=== PATIENT | female | born 1980 | race Hispanic/Latino ===

== ENCOUNTER 2018-03-21 08:22 | Outpatient (CLI) | payer OTHER ==
--- NOTE | 2018-03-21 09:48 | RAD ---
LUMBAR SPINE TWO VIEWS: History: 37-year-old female with history of lumbago with sciatica, left side. FINDINGS: AP and lateral weightbearing views of the lumbar spine are performed. There are some disc osteophytosis changes with some minimal generalized ligament and facet hypertroph ic changes. No acute fracture, dislocation, or malalignment. IMPRESSION: Lumbar spondylosis. POS: ALEX
== END 2018-03-21 08:23 | disposition home or self-care (01) ==
LOC: BICRAD 08:22
PROVIDERS: ATTEND Family Medicine
DX: M54.42 Lumbago with sciatica, left side (principal); M47.26 Other spondylosis with radiculopathy, lumbar region
CPT/HCPCS: 72100

== ENCOUNTER 2018-09-26 15:08 | Outpatient (CLI) | payer OTHER ==
--- NOTE | 2018-09-26 15:47 | MMO ---
Bilateral MAMMO Bilat Screen [facility]. CLINICAL HISTORY: Patient is 38 years old and is seen for screening. The patient has no family history of breast cancer. The patient has no personal history of cancer. VIEWS: The views performed were: bilateral craniocaudal with tomosynthesis and bilateral mediolateral oblique with tomosynthesis. MAMMOGRAM FINDINGS: There are scattered fibroglandular densities. There are benign appearing calcifications seen in the right breast. There are no suspicious masses, suspicious calcifications, or new areas of architectural distortion. IMPRESSION: THERE IS NO MAMMOGRAPHIC EVIDENCE OF MALIGNANCY. A ROUTINE FOLLOW-UP MAMMOGRAM IN 1 YEAR IS RECOMMENDED. THE RESULTS OF THIS EXAM WERE SENT TO THE PATIENT. ACR BI-RADS Category 2 - Benign finding MAMMOGRAPHY NOTE: 1. A negative mammogram report should not delay a biopsy if a dominant of clinically suspicious mass is present. 2. Approximately 10% to 15% of breast cancers are not detected by mammography. 3. Adenosis and dense breasts may obscure an underlying neoplasm.
== END 2018-09-26 15:09 | disposition home or self-care (01) ==
LOC: BICMAMMO 15:08
PROVIDERS: ATTEND Student in an Organized Health Care Education/Training Program
DX: Z12.31 Encounter for screening mammogram for malignant neoplasm of breast (principal)
CPT/HCPCS: 77063; 77067

== ENCOUNTER 2019-03-05 06:40 | Outpatient (CLI) | payer OTHER ==
[2019-03-05 15:51] LABS: BHCG - Serum Negative (NEGATIVE); Pregs Control Background? CLEAR/WHITE (CLR/WHITE); Pregs Control Bar Appear? YES (CONTROL BAR)
--- NOTE | 2019-03-10 17:06 | EKG ---
Test Reason : Blood Pressure : / mmHG Vent. Rate : 085 BPM Atrial Rate : 085 BPM P-R Int : 148 ms QRS Dur : 084 ms QT Int : 362 ms P-R-T Axes : -21 058 020 degrees QTc Int : 430 ms Normal sinus rhythm Normal ECG No previous ECGs available Confirmed by CAITLIN JUAREZ (2) on 03/10/2019 5:06:00 PM Referred By: MATT Confirmed By:CAITLIN JUAREZ
== END 2019-03-05 06:41 | disposition home or self-care (01) ==
LOC: LABBT 06:40
PROVIDERS: ATTEND Student in an Organized Health Care Education/Training Program
DX: Z01.818 Encounter for other preprocedural examination (principal); N92.0 Excessive and frequent menstruation with regular cycle; R10.2 Pelvic and perineal pain; N83.202 Unspecified ovarian cyst, left side; N87.9 Dysplasia of cervix uteri, unspecified
CPT/HCPCS: 84703; 93005; 93010

== ENCOUNTER 2019-03-11 07:24 | Day surgery (SDC) | payer OTHER ==
[2019-03-05 09:45] VITALS: BMI 47.2
[2019-03-05 15:41] LABS: Hemoglobin 11.9 g/dL (12.0-16.0); Mean Corpuscular HGB CONC 33.3 g/dL (32.0-36.0); Mean Corpuscular Hemoglobin 28.9 pg (27.0-31.0); Mean Corpuscular Volume 86.8 fL (78.0-98.0); Mean Platelet Volume 8.3 fL (7.4-10.4); Platelet Count 319 thou/uL (130-400); RBC Distribution Width 13.5 % (11.5-14.5); Red Blood Cell (RBC) Count 4.12 mill/uL (4.20-5.40); White Blood Cell (WBC) Count 14.4 thou/uL (4.8-10.8)
[2019-03-05 16:03] LABS: ALT (SGPT) 14 U/L (8-55); AST (SGOT) 11 U/L (5-34); Albumin 3.7 g/dL (3.5-5.0); Alkaline Phosphatase 103 U/L (40-150); Anion Gap 14 mmol/L (10-20); BUN (Urea Nitrogen) 12 mg/dL (7.0-18.7); Bilirubin, Direct 0.1 mg/dL (0.1-0.3); Bilirubin, Total Less than 0.2 mg/dL (0.2-1.2); Calc. Creatinine Clearance 0 mL/min (70-130); Calcium 9.3 mg/dL (7.8-10.44); Carbon Dioxide 25 mmol/L (22-29); Chloride 104 mmol/L (98-107); Estimated GFR-MDRD Greater than 90; Glucose 140 mg/dL (70-105); Potassium 3.6 mmol/L (3.5-5.1); Protein, Total 7.2 g/dL (6.0-8.3); Sodium 139 mmol/L (136-145)
[2019-03-11] MEDS ORDERED: Famotidine/PF 20 mg/2ml Vial ONE (07:52)
[2019-03-11] MEDS ORDERED: Gabapentin 300 MG CAP ONE (07:52)
[2019-03-11] MEDS ORDERED: Midazolam HCl 2 mg/2 ml Vial ONE (09:59)
[2019-03-11] MEDS ORDERED: Bupivacaine HCl 0.5%/Epinephrine 1:200,000/PF 30 ml Vial ONE (10:12)
[2019-03-11] MEDS ORDERED: Fentanyl 250 MCG/5 ML VIAL ONE (10:19)
[2019-03-11] MEDS ORDERED: Albuterol Sulfate HFA (OR ONLY) ONE (10:47)
[2019-03-11] MEDS ORDERED: Fentanyl 100 MCG/2 ML VIAL ONE ×2 (13:18→13:43)
[2019-03-11] MEDS ORDERED: Ondansetron PF 4 MG/2 ML Vial ONE (13:51)
[2019-03-11] MEDS ORDERED: Lidocaine 1% PF 5 ML VIAL ONE (13:51)
[2019-03-11] MEDS ORDERED: Rocuronium Bromide 10 MG/ML (10ML VIAL) ONE (13:51)
[2019-03-11] MEDS ORDERED: Metoclopramide HCl 10 MG/2 ML VIAL ONE (13:51)
[2019-03-11] MEDS ORDERED: PROPOFOL 200 MG/20 ML VIAL ONE (13:51)
[2019-03-11] MEDS ORDERED: Glycopyrrolate 0.2 MG/ML 5 ML SYRINGE ONE (13:51)
[2019-03-11] MEDS ORDERED: HYDROcodone/Acetaminophen 5/325 mg Tablet ONE ×2 (15:13→18:04)
--- NOTE | 2019-03-12 10:39 | OP ---
DATE OF PROCEDURE: 03/11/2019 PREOPERATIVE DIAGNOSES: 1. Pelvic pain. 2. Menorrhagia. 3. Ovarian cyst. 4. Cervical dysplasia. POSTOPERATIVE DIAGNOSES: 1. Pelvic pain. 2. Menorrhagia. 3. Ovarian cyst. 4. Cervical dysplasia. 5. Endometriosis. 6. Pelvic adhesions. PROCEDURES PERFORMED: Robotic-assisted total laparoscopic hysterectomy, bilateral salpingo-oophorectomy, and lysis of adhesions. ANESTHESIA: General endotracheal. FLYING SQUAD WORKER SURGEON: Fern Diaz. ESTIMATED BLOOD LOSS: 100 mL. IVF: 1800 mL crystalloid. URINE OUTPUT: 350 mL of clear urine. COMPLICATIONS: None. DRAINS: Chaves catheter. PATHOLOGY: Uterus, cervix, and bilateral fallopian tubes and ovaries. FINDINGS: On exam under anesthesia, a mobile 9-week sized uterus present, sounded to 9 cm. Cervix was normal-appearing. On intraabdominal survey, omental adhesions to the umbilicus as well as adhesions of the ovary to the sigmoid and the pelvic sidewall on the left side that were densely adherent. Filmy adhesions of the uterus to the bladder, the posterior cul-de-sac, and bilateral pelvic sidewalls. Fallopian tube on the left side appeared to be a hydrosalpinx. The right ovary was noted to have endometriotic implants on it. The right fallopian tube appeared swollen as well. The ureters were dissected out retroperitoneally for visualization to ensure no inadvertent injury. DESCRIPTION OF PROCEDURE: The patient was taken to the operating room, where general anesthesia was obtained without difficulty. The patient was prepped and draped in a sterile fashion in the dorsal lithotomy position. A Chaves catheter was placed in the bladder. Speculum was placed in the vagina. The anterior lip of the cervix was grasped with a single-tooth tenaculum. The uterus then sounded to 9 cm, and the BENTLEY manipulator was assembled with a 3.5 cm colpotomizer ring and an 8 cm tip. The cervix was dilated with Levy dilators and the BENTLEY tip was inserted into the uterus. Instruments were removed out of the vagina, and vaginal occluder balloon was inflated. Legs were placed in the lithotomy. Attention was turned to the abdomen. 0.5% Marcaine with epi was infiltrated into the superior aspect of the umbilicus, and a 12-mm vertical skin incision was made with a knife. The Veress needle was passed into the abdomen and after several attempts, an opening pressure of 3 mmHg was achieved. Pneumoperitoneum was obtained. The Veress needle was removed, and a 12-mm trocar was advanced into the abdomen and confirmed placement with a robotic camera. The omental adhesions to the umbilicus were noted and these were inferior to where the trocar was placed. There was no bowel contained in these. Steep Trendelenburg was obtained. Right and left lower quadrant 8-mm robotic trocars were placed after infiltrating with anesthetic and making a horizontal skin incision under direct visualization. A right upper quadrant 11-mm cancer genetics assistant port was also placed under direct visualization after infiltrating with anesthetic and making horizontal skin incision. The robot was then docked. The right robotic arm contained the monopolar scissors and left robotic arm contained a fenestrated bipolar. The surgeon console then took control. The omental adhesions of the umbilicus were able to be avoided by bringing the camera around the side of it. At that time, it was noted that the pelvis had adhesions in it and the above findings were noted. Approximately, 30 minutes of lysis of adhesions was performed to normalize the anatomy prior to beginning the hysterectomy. This was mainly on the left lower quadrant pelvis. The filmy adhesions of the sigmoid to the ovary were initially taken down with cold scissors. There were also sigmoid adhesions to the left pelvic sidewall that impaired visualization and traction on the ovary and these were taken down with cold scissors as well. The ovary was then carefully dissected off the pelvic brim and pelvic sidewall, mainly using traction-countertraction technique with both the instruments and achieving hemostasis with cautery. Once the ovary was freed up, the infundibulopelvic ligament was identified. A window was made around the IP ligament and this was clamped and cauterized, tagging the ovary to ensure no ureteral injury as the ureter had not yet been identified. The IP was incised with the scissors, and the peritoneum was incised down to the round ligament that was cauterized and incised in the midportion and that opened up the broad ligament and the anterior leaf was incised. There were filmy adhesions to the round ligament and pelvic sidewall from the uterus that were taken down with the scissors and cautery and there were also filmy adhesions of the bladder to the lower uterine segment. The posterior leaf of the broad ligament was dropped down, and the retroperitoneum was dissected off the uterine pedicle, mainly with blunt dissection, pushing and spreading with both instruments. The uterine pedicle was skeletonized adequately. The ureter was not identified at that time. The bladder flap was then created ensuring a clear window by tenting up with the fenestrated and incising with the scissors. Attention was then turned to the right side, where it was determined there were endometriotic implants and the adhesions were from endometriosis and decided that due to patient's main complain of pelvic pain, she would benefit from BSO secondary to endometriosis. Therefore, the ureter on the right side was identified at the pelvic brim. The ovary was elevated. The IP was clamped and cauterized underneath the ovary and incised with the scissors. The peritoneum was then incised down to the round ligament. The round ligament was cauterized and incised also. The posterior leaf of the broad ligament was dropped down. The ureter was identified in the retroperitoneum easily on the right side, and the retroperitoneum was dissected off the uterine arteries and skeletonized. The anterior leaf of the broad ligament was incised also down to the bladder flap. The bladder flap was further created by scoring on the pubocervical fascia and bluntly dissecting down distally below the level of the colpotomizer ring. The vessels were cauterized multiple times bilaterally and incised. Colpotomy was then performed, and the uterus was placed into the vagina. At that time, the pelvis was irrigated and suctioned. The hemostasis was achieved at the vaginal cuff with the fenestrated bipolar. The left pelvic sidewall was examined retroperitoneally from the previous dissection, and the ureter was able to be identified in the retroperitoneum and it was vermiculating. There was no inadvertent damage to the ureter that was noted. At that time, the scissors were traded out for the needle medical driver and the vaginal cuff was closed with Stratafix 2-0 barbed suture in a running fashion and run back for a second layer as well. The needle was removed out of the abdomen. Irrigation was performed of the pelvis as well as low pressure check. Hemostasis was noted to be excellent. Subhash was placed over the pelvis and pedicles, and all instruments were removed out of the abdomen. Pneumoperitoneum was released. The robot was undocked. The fascia of the camera port was closed with a 0 Vicryl in a [id number] fashion. The skin was closed with a 4-0 Monocryl in a subcuticular fashion and Dermabond was applied. The vaginal cuff was checked vaginally and noted to be hemostatic with excellent closure. All instruments were removed out of the vagina. The patient tolerated the procedure well. Sponge, lap, and needle counts were correct x2. The patient was taken to recovery room in stable condition. The patient received Ancef 2 g prior to the procedure. Job ID: [id number]
== END 2019-03-11 19:35 | disposition home or self-care (01) ==
LOC: SDC 07:24
PROVIDERS: ATTEND Student in an Organized Health Care Education/Training Program
PROC: 0UT94ZZ Resection of Uterus, Percutaneous Endoscopic Approach (ICD-10-PCS; principal; 2019-03-11)
PROC: 0UT24ZZ Resection of Bilateral Ovaries, Percutaneous Endoscopic Approach (ICD-10-PCS; principal; 2019-03-11)
PROC: 0UT74ZZ Resection of Bilateral Fallopian Tubes, Percutaneous Endoscopic Approach (ICD-10-PCS; principal; 2019-03-11)
DX: D25.9 Leiomyoma of uterus, unspecified (principal); N83.209 Unspecified ovarian cyst, unspecified side; N73.6 Female pelvic peritoneal adhesions (postinfective); I10 Essential (primary) hypertension; E78.00 Pure hypercholesterolemia, unspecified; R73.03 Prediabetes; E66.9 Obesity, unspecified; Z68.42 Body mass index [BMI] 45.0-49.9, adult; Z79.84 Long term (current) use of oral hypoglycemic drugs; Z79.51 Long term (current) use of inhaled steroids; Z88.2 Allergy status to sulfonamides; Z88.5 Allergy status to narcotic agent; Z91.030 Bee allergy status
CPT/HCPCS: 80048; 80076; 85027; 86850; 86900; 86901; 88307; J0670; J0690; J2001; J2250; J2405; J2704; J2765; J3010; S0028

== ENCOUNTER 2019-08-09 08:42 | Outpatient (CLI) | payer OTHER ==
--- NOTE | 2019-08-09 08:55 | RAD ---
EXAM: Chest PA and lateral: HISTORY: Pneumonia COMPARISON: None FINDINGS: Heart: Normal cardiac silhouette Aorta: Unremarkable Pulmonary vessels: Normal Costophrenic angles: Costophrenic angles are clear. Lungs: No consolidation or masses. Pneumothorax: No pneumothorax Osseous structures: No osseous abnormalities IMPRESSION: No acute cardiopulmonary process.
== END 2019-08-09 08:43 | disposition home or self-care (01) ==
LOC: BICRAD 08:42
PROVIDERS: ATTEND Nurse Practitioner Family
DX: J18.9 Pneumonia, unspecified organism (principal)
CPT/HCPCS: 71046

== ENCOUNTER 2020-01-16 15:49 | Outpatient (CLI) | payer OTHER ==
--- NOTE | 2020-01-16 16:27 | MMO ---
Bilateral MAMMO Bilat Screen [facility]. CLINICAL HISTORY: Patient is 39 years old and is seen for screening. The patient has no family history of breast cancer. The patient has no personal history of cancer. VIEWS: The views performed were: bilateral craniocaudal with tomosynthesis and bilateral mediolateral oblique with tomosynthesis. FILMS COMPARED: The present examination has been compared to a prior imaging study performed at [facility] on 09/26/2018. This study has been interpreted with the assistance of computer-aided detection. MAMMOGRAM FINDINGS: The breasts are almost entirely fat. There are no suspicious masses, suspicious calcifications, or new areas of architectural distortion. IMPRESSION: THERE IS NO MAMMOGRAPHIC EVIDENCE OF MALIGNANCY. A ROUTINE FOLLOW-UP MAMMOGRAM IN 1 YEAR IS RECOMMENDED. THE RESULTS OF THIS EXAM WERE SENT TO THE PATIENT. ACR BI-RADS Category 1 - Negative MAMMOGRAPHY NOTE: 1. A negative mammogram report should not delay a biopsy if a dominant of clinically suspicious mass is present. 2. Approximately 10% to 15% of breast cancers are not detected by mammography. 3. Adenosis and dense breasts may obscure an underlying neoplasm. Reported by: CATHRYN KENDALL MD Electonically Signed: [id number]
== END 2020-01-16 15:50 | disposition home or self-care (01) ==
LOC: BICMAMMO 15:49
PROVIDERS: ATTEND Family Medicine
DX: Z12.31 Encounter for screening mammogram for malignant neoplasm of breast (principal)
CPT/HCPCS: 77063; 77067

== ENCOUNTER 2022-11-29 15:00 | Outpatient (CLI) | payer BC | END 2022-11-29 15:01 | disposition home or self-care (01) | LOC: BICRAD 15:00 | PROVIDERS: ATTEND Nurse Practitioner Family | DX: M54.41 Lumbago with sciatica, right side (principal) | CPT/HCPCS: 72100 ==